=== PATIENT | female | born 1985 | race Two or more races ===

== ENCOUNTER 2019-01-29 21:35 | Inpatient (IN) | payer OTHER | END 2019-02-03 11:10 | disposition home or self-care (01) | LOC: JLDR 21:35 → J3W 01-30 09:52 ==

== ENCOUNTER 2023-10-23 06:00 | Inpatient (IN) | payer OTHER ==
[2023-10-23] MEDS: ELECTROLYTE-148 SOLN 500 ML IV SCH (06:30)
[2023-10-23 06:38] VITALS: BMI 32.1
[2023-10-23] MEDS ORDERED: ELECTROLYTE-148 SOLN 500 ML IV SCH (06:45)
[2023-10-23] MEDS: CITRIC ACID/SODIUM CITRATE 30 ML UNIT-DOSE CUP PO ONE (07:40)
[2023-10-23] MEDS: ELECTROLYTE-148 SOLN 1,000 ML IV SCH (07:40)
[2023-10-23] MEDS ORDERED: FENTANYL CITRATE/PF 50 MCG/ML VIAL ONE (08:01)
[2023-10-23] MEDS ORDERED: morphine SULFATE/PF 1 MG/2 ML (2cc Syringe - QUVA) ONE (08:01)
[2023-10-23] MEDS ORDERED: ceFAZolin SODIUM 1 GM VIAL ONE (08:07)
[2023-10-23] MEDS ORDERED: ELECTROLYTE-148 SOLN 1,000 ML IV SCH (08:15)
[2023-10-23] MEDS ORDERED: ONDANSETRON 4 MG/2 ML VIAL ONE (08:22)
[2023-10-23] MEDS ORDERED: OXYTOCIN 10 UNITS/ML VIAL ONE ×2 (08:28→08:38)
[2023-10-23] MEDS: OXYTOCIN 20 UNITS in 0.9% NS 20 UNIT/1,000 ML INFUS.BAG IV SCH (09:32)
[2023-10-23] MEDS ORDERED: OXYTOCIN 20 UNITS in 0.9% NS 20 UNIT/1,000 ML INFUS.BAG IV ONE (09:32)
[2023-10-23] MEDS ORDERED: ONDANSETRON 4 MG/2 ML VIAL IVPUSH PRN (09:34)
[2023-10-23] MEDS ORDERED: METHYLERGONOVINE MALEATE 0.2 MG/1 ML AMP IM PRN (09:42)
[2023-10-23] MEDS ORDERED: ACETAMINOPHEN 1000 MG/100 ML BAG IVPB PRN ×2 (09:44→13:04)
[2023-10-23] MEDS: FERROUS SO4 325 MG TABLET (FP) PO SCH (11:05)
[2023-10-23] MEDS: PRENATAL VITAMINS W/ FOLIC ACID TABLET (FP) PO SCH (11:05)
[2023-10-23] MEDS: IBUPROFEN 800 MG/8 ML IJ IVPB PRN (13:56)
[2023-10-24 06:00] VITALS: RESP 18
[2023-10-24 07:22] LABS: BASO % 0.1 % (0-2.0); EOS % 1.2 % (0-4.5); HEMATOCRIT 24.2 % (32.4-45.2); HEMOGLOBIN 8.2 GM/dL (10.7-15.3); LYMPH % 15.7 % (8-40); MCH 31.1 pg (25.7-33.7); MCHC 33.9 g/dl (32.0-36.0); MEAN CELL VOLUME 91.6 fl (80-96); MEAN PLT VOLUME 7.9 fl (7.5-11.1); MONO % 5.7 % (3.8-10.2); NEUT % 77.3 % (42.8-82.8); PLATELET COUNT 175 10^3/uL (134-434); RBC 2.64 M/mm3 (3.60-5.2); RDW 14.6 % (11.6-15.6); WHITE BLOOD COUNT 9.8 K/mm3 (4.0-10.0)
[2023-10-24] MEDS ORDERED: ACETAMINOPHEN 325 MG TABLET (FP) PO PRN (09:42)
[2023-10-24] MEDS ORDERED: BISACODYL 10 MG SUPP.RECT RC PRN (09:42)
[2023-10-24] MEDS: IBUPROFEN 600 MG TABLET (FP) PO PRN (10:00)
[2023-10-24] MEDS: SIMETHICONE 80 MG TAB.CHEW (FP) PO PRN (10:02)
[2023-10-24] MEDS: oxyCODONE HCL 5 MG TABLET PO PRN ×2 (11:43→22:08)
[2023-10-24] MEDS: SENNOSIDES/DOCUSATE COMBO (SENNA PLUS) TABLET (UD) PO PRN (22:07)
[2023-10-26 07:56] VITALS: BP 114/70; PULSE 77; TEMP 97.8
== END 2023-10-26 13:41 | disposition home or self-care (01) | DRG 540 ==
LOC: JLDR 06:00 → J3W 11:40
PROVIDERS: ADMIT Obstetrics & Gynecology; ATTEND Obstetrics & Gynecology
PROC: 10D00Z1 Extraction of Products of Conception, Low, Open Approach (ICD-10-PCS; principal; 2023-10-23)
DX: O34.211 Maternal care for low transverse scar from previous cesarean delivery (principal); N85.8 Other specified noninflammatory disorders of uterus; Z3A.39 39 weeks gestation of pregnancy; Z37.0 Single live birth
CPT/HCPCS: 36415; 80053; 85025; 85610; 85730; 86780; 86803; 86850; 86900; 86901; 87389; 88307-TC

== ENCOUNTER 2023-11-02 09:25 | Emergency (ER) | payer OTHER ==
[2023-11-02 09:39] VITALS: BP 112/76; PULSE 85; RESP 18; TEMP 99; BMI 29.6
[2023-11-02] MEDS ORDERED: LIDOCAINE 4% PATCH TP ONE (10:45)
[2023-11-02] MEDS: LIDOCAINE 4% PATCH TP ONE (11:00)
[2023-11-02 11:06] LABS: BASO % 0.6 % (0-2.0); HEMATOCRIT 33.1 % (32.4-45.2); HEMOGLOBIN 10.9 GM/dL (10.7-15.3); LYMPH % 22.5 % (8-40); MCH 29.8 pg (25.7-33.7); MCHC 32.8 g/dl (32.0-36.0); MEAN CELL VOLUME 90.7 fl (80-96); MEAN PLT VOLUME 7.1 fl (7.5-11.1); MONO % 6.3 % (3.8-10.2); NEUT % 68.6 % (42.8-82.8); PLATELET COUNT 352 10^3/uL (134-434); RBC 3.65 M/mm3 (3.60-5.2); RDW 14.8 % (11.6-15.6); WHITE BLOOD COUNT 8.4 K/mm3 (4.0-10.0)
[2023-11-02 11:14] LABS: INR 0.97 (0.83-1.09); PROTHROMBIN TIME (PATIENT) 11.2 SEC (9.7-13.0)
[2023-11-02 11:16] LABS: ACTIVATED PTT 27.7 SECONDS (25.2-36.5)
[2023-11-02 11:30] LABS: POTASSIUM 4.3 mmol/L (3.5-5.1)
[2023-11-02 11:32] LABS: CALCIUM 8.9 mg/dL (8.5-10.1)
[2023-11-02 11:33] LABS: BLOOD UREA NITROGEN 12.4 mg/dL (7-18)
[2023-11-02 11:36] LABS: CREATININE 0.6 mg/dL (0.55-1.3)
[2023-11-02 11:37] LABS: BILIRUBIN,TOTAL 0.4 mg/dL (0.2-1); TOT PROT 7.1 g/dl (6.4-8.2)
[2023-11-02 11:47] LABS: ALBUMIN 3.1 g/dl (3.4-5.0)
[2023-11-02] MEDS: FAMOTIDINE 20 MG/50 ML IVPB 20 MG/50 ML MG IVPB ONE (13:21)
[2023-11-02] MEDS: ACETAMINOPHEN 1000 MG/100 ML BAG IVPB ONE (13:21)
[2023-11-02] MEDS ORDERED: KETOROLAC TROMETHAMINE 15 MG/ML VIAL IVPUSH ONE (14:46)
[2023-11-02] MEDS ORDERED: KETOROLAC TROMETHAMINE 15 MG/ML VIAL ONE (15:03)
[2023-11-02] MEDS ORDERED: LIDOCAINE PATCH REMOVAL MC ONE (22:00)
== END 2023-11-02 15:13 | disposition home or self-care (01) ==
LOC: JER 09:25
DX: R10.12 Left upper quadrant pain (principal); R07.81 Pleurodynia
CPT/HCPCS: 36415; 71046-TC-FY; 71275-TC; 80053; 85025; 85379; 85610; 85730; 93005; 93010; 99285-25; Q9967